=== PATIENT | male | born 1990 | race Caucasian/White ===

== ENCOUNTER 2023-11-14 18:32 | Emergency (ER) | payer MEDICAID ==
[~2023-11-14] VITALS: Ht 172.7 cm; Wt 69.0 kg
[~2023-11-14 18:32] MED LIST: CHLO473M3 PO
[2023-11-14 18:51] VITALS: BP 126/76; PULSE 93; RESP 19; TEMP 98.9; O2SAT 99
== END 2023-11-14 21:52 | disposition left against medical advice (07) ==
LOC: ER 18:33
DX: R51.9 Headache, unspecified (principal); M54.9 Dorsalgia, unspecified; R06.02 Shortness of breath; Z53.21 Procedure and treatment not carried out due to patient leaving prior to being seen by health care provider
CPT/HCPCS: 99281

== ENCOUNTER 2023-12-13 21:13 | Emergency (ER) | payer MEDICAID ==
[~2023-12-13] VITALS: Ht 172.7 cm; Wt 78.2 kg
[2023-12-13] MEDS: LIDOcaine 1% W/epiNEPHrine 1:100,000 20ml vial SQ ONE (23:21)
[2023-12-13] MEDS: bacitracin 15gm ointment TP ONE (23:21)
== END 2023-12-13 23:23 | disposition home or self-care (01) ==
LOC: ER 21:13
DX: S61.211A Laceration without foreign body of left index finger without damage to nail, initial encounter (principal); J45.909 Unspecified asthma, uncomplicated; Z88.8 Allergy status to other drugs, medicaments and biological substances; Z79.899 Other long term (current) drug therapy; X58.XXXA Exposure to other specified factors, initial encounter; Y93.89 Activity, other specified; Y92.89 Other specified places as the place of occurrence of the external cause; Y99.8 Other external cause status
CPT/HCPCS: 12001; 99282